=== PATIENT | male | born 1970 | race Caucasian/White ===

== ENCOUNTER 2016-09-11 02:54 | Emergency (ER) | payer OTHER ==
[~2016-09-11] VITALS: Ht 177.8 cm; Wt 129.3 kg
--- NOTE | 2016-09-11 03:43 | ED THROAT/DENTAL COMPLAINT ---
History of Present Illness General Chief Complaint: General Adult Stated Complaint: SENT BY PMD SINUS INFECT MULTI COMP ? +SYNCOPAL Source: patient Exam Limitations: no limitations Vital Signs & Intake/Output Vital Signs & Intake/Output Vital Signs Date Time Temp Pulse Resp B/P B/P Pulse O2 O2 Flow FiO2 Mean Ox Delivery Rate 09/11 317 Room Air Room Air 09/11 309 98.6 85 15 118/61 96 Room Air Room Air Allergies Coded Allergies: Penicillins (Intermediate, RASH, HIVES 09/11/16) Triage Note: PT TO ED FOR C/C OF "I WAS DIAGNOSED WITH A REALLY BAD SINUS INFECTION BY MY PRIMARY CARE." PT HAD SWELLING TO LEFT SIDE OF MOUTH THAT IS NOW SPREADING TO RIGHT SIDE OF MOUTH. SUBJECTIVE FEVERS AT HOME 103. PT ALSO REPORTS HE PASSED OUT IN SHOWER AND WOKE UP ON FLOOR. ?HIT TO HEAD, PT IS UNSURE. Triage Nurses Notes Reviewed? yes HPI: Patient presents for evaluation of mouth and neck pain and feelings of swelling. Patient states that his symptoms initially were I merrily left-sided for the past 2 weeks or so but became bilateral about 1:00 this morning. Patient contacted his primary care physician who told him to go to the emergency department. While showering the patient experienced nausea and dizziness and a syncopal episode. The patient's was with him in the bathroom and she heard him fall in the shower. She went to him and found him unconscious but this lasted only a few seconds. Patient denies any headache chest pain or palpitations currently. There is no apparent seizure-like activity and no urinary or fecal incontinence. Patient thinks he also had a fever off and on for the past 5 days or so. Patient was recently treated by a walk-in clinic with a Z-Dustin for sinus infection. He was also evaluated by his primary care physician yesterday and was told to continue the current treatment (Z-Dustin). Past History Travel History Traveled to [place] past 21 day No Medical History Any Pertinent Medical History? see below for history Neurological: NONE EENT: NONE Cardiovascular: hypertension Respiratory: NONE Gastrointestinal: DIVERTICULOSIS Hepatic: NONE Renal: NONE Psychiatric: NONE Endocrine: NONE Blood Disorders: NONE Cancer(s): NONE CHECKOUT SUPERVISOR/Reproductive: NONE Surgical History Surgical History: non-contributory Psychosocial History What is your primary language Japanese Tobacco Use: Quit >30 days ago ETOH Use: occasional use Illicit Drug Use: denies illicit drug use Family History Hx Contributory? No Review of Systems Review of Systems Constitutional: Reports: no symptoms. EENTM: Reports: see HPI. Respiratory: Reports: no symptoms. Cardiovascular: Reports: no symptoms. GI: Reports: no symptoms. Genitourinary: Reports: no symptoms. Musculoskeletal: Reports: no symptoms. Skin: Reports: no symptoms. Neurological/Psychological: Reports: no symptoms. Hematologic/Endocrine: Reports: no symptoms. Immunologic/Allergic: Reports: no symptoms. All Other Systems: Reviewed and Negative Physical Exam Physical Exam Mouth/Throat: SEE BELOW Comments: Gen.: Well-nourished, well-developed, no acute respiratory distress. Head: Normocephalic, atraumatic. Eyes: Normal inspection bilaterally Ears: Normal inspection bilaterally Nose: Normal inspection Throat/mouth : Moist mucosa, bilateral tonsillar soft tissue swelling (left greater than right), uvula midline, scattered oral mucosal ulcerations consistent with herpangina Neck: Supple, full range of motion, no goiter, mild left anterior neck tenderness, no apparent lymphadenopathy Heart: Regular rate and rhythm, no murmurs rubs or gallops Lungs: Clear to auscultation bilaterally with normal air entry Chest: Nontender Back: Normal range of motion Abdomen: Soft, nontender, nondistended, normal bowel sounds Extremities: Normal range of motion grossly, equal radial pulses, no cyanosis clubbing or edema Neurologic: Cranial nerves grossly intact, speech is clear Skin: warm and dry Psychiatric: Calm, cooperative, no apparent delusions or hallucinations Core Measures ACS in differential dx? No Severe Sepsis Present: No Septic Shock Present: No Progress Differential Diagnosis: carious tooth, epiglottitis, Ludwigs angina, odontogenic abscess, strep pharyngitis, VIRAL SYNDROME Plan of Care: Symptomatic care Comments: I have had a relatively long discussion with [facility]ACE regarding his syncopal episode. It is very likely the results of the pain he was experiencing along with the hot shower and relatively poor PO intake today. He states he had similar event (although he didn't quite pass out) related to a prior kidney stone. He states at that time he was also taking a shower while he was having kidney stone pain. He has declined additional evaluation such as an EKG orthostatic vital signs. Departure Departure Disposition: HOME OR SELF CARE Condition: Stable Clinical Impression Primary Impression: Herpangina Referrals: KIANA FERRARI,ALBER Sierra (PCP/Family) Additional Instructions: Continue ibuprofen 600 mg every 6 hours as needed for pain or discomfort. Add Tylenol with Codeine if additional pain control is necessary. Consider "magic mouthwash"-mix one part liquid Benadryl with 1 part Maalox and swish and swallow every 4-6 hours. Follow-up with your primary care physician in 5-7 days if not improving. Return if any concerns or sudden worsening. Thank you for choosing the [facility] for your care. It was a pleasure to serve you today. Prasanna Houston M.D. [facility] Departure Forms: Customer Survey General Discharge Information Prescriptions: Current Visit Scripts Tylenol With Codeine (Tylenol With Codeine #3 Tablet) 1 TAB PO Q6P PRN SORE THROAT PAIN #12 TAB
[2016-09-11] MEDS ORDERED: TYLENOL WITH C1 EACH PO (04:04)
[2016-09-11 04:12] VITALS: BP 120/65
== END 2016-09-11 04:13 ==
LOC: ERH 02:54
DX: B08.5 Enteroviral vesicular pharyngitis (principal)